=== PATIENT | female | born 1945 | race Caucasian/White ===

== ENCOUNTER 2017-12-16 20:29 | Emergency (ER) | payer OTHER, MEDICARE ==
[~2017-12-16] VITALS: Ht 162.6 cm; Wt 111.6 kg
[~2017-12-16 20:29] MED LIST: ALBU90OI61 INH; ALBUTEROL MDI; ASPI81CH PO; AZIT500; CLOT10; CODACE30; ERGO50000 PO; ERYT.5TO OS; FURO20 PO; GLIP5 PO; HYDGUAL120; INSLI100I; INSULANI; INSULANI SC; KETEK; KETO10; KETO10 PO; LISI5 PO; MAGGLU250 PO; MELA3 PO; METF500 PO; MORP15ER PO; MUPI2TO TOP; NAPR500; OXYACE5T; OXYACE5T PO; OXYC5 PO; POTA8 PO; PRED20; PROM25 PO; PSYL5.85P; RANI150; RANI150 PO; RXCODACET PO; Robaxin500 MG PO; SIMV10 PO; TORADOL; TRAZ100; TRAZ50; TRAZADONE; ZOLP5 PO; [UNRECOGNIZED DRUG - REMARK]
[2017-12-16 20:56] LABS: BASOPHILS ABSOLUTE AUTO 0.11 K/mm3 (0.00-0.23); BASOPHILS PERCENT AUTO 1 % (0-2); EOSINOPHILS ABSOLUTE AUTO 0.08 K/mm3 (0.00-0.68); EOSINOPHILS PERCENT AUTO 0 % (0-6); Hematocrit 45.5 % (33.0-51.0); Hemoglobin 15.6 g/dL (11.5-16.0); IMMATURE GRAN ABSOLUTE AUTO 0.21 K/mm3 (0.00-0.10); IMMATURE GRAN PERCENT AUTO 1 % (0-1); LYMPHOCYTES ABSOLUTE AUTO 3.75 K/mm3 (0.84-5.20); LYMPHOCYTES PERCENT AUTO 17 % (21-46); MONOCYTES ABSOLUTE AUTO 1.56 K/mm3 (0.16-1.47); MONOCYTES PERCENT AUTO 7 % (4-13); Mean Corpuscular HGB 26.3 pg (26.0-34.0); Mean Corpuscular HGB Conc 34.3 g/dL (31.5-36.5); Mean Corpuscular Volume 77 fL (80-100); Mean Platelet Volume 11.9 fL (9.1-12.4); NEUTROPHILS ABSOLUTE AUTO 16.37 K/mm3 (1.96-9.15); NEUTROPHILS PERCENT AUTO 74 % (41-73); Platelet Count 400 K/mm3 (150-400); RDW Coefficient Variation 12.6 % (11.7-14.2); RDW Standard Deviation 34.9 fL (35.1-46.3); Red Blood Cell Count 5.93 M/mm3 (3.80-5.20); White Blood Cell Count 22.08 K/mm3 (4.00-11.30)
[2017-12-16 21:00] LABS: Chloride (POC) 91 mmol/L (98-108); Creatinine (POC) 0.8 mg/dL (0.6-1.0); Glucose (ISTAT POC) 182 mg/dL (70-99); Hemoglobin (POC) 15.3 g/dL (12.0-16.0); Potassium (POC) 2.4 mmol/L (3.5-5.5); Sodium (POC) 133 mmol/L (135-148); Total CO2 (POC) 18 mmol/L (21-32)
[2017-12-16 21:06] LABS: Alanine Aminotransfer (ALT/SGP 40 U/L (12-78); Albumin, Blood 3.7 g/dL (3.4-5.0); Albumin/Globulin Ratio 0.9 (0.8-1.8); Alk Phos 112 U/L (50-136); Anion Gap 20 mmol/L (6-16); Aspartate Aminotrans (AST/SGOT 33 U/L (12-37); Bilirubin, Total 0.7 mg/dL (0.1-1.0); Blood Urea Nitrogen 8 mg/dL (8-24); CO2, Blood 19 mmol/L (21-32); Calcium, Blood 9.3 mg/dL (8.5-10.1); Chloride, Blood 93 mmol/L (98-108); Ethanol (Alcohol), Blood, Med <3 mg/dL; Globulin, Blood 4.1 g/dL (2.2-4.0); Glomerular Filtration Rate >60 (60-); Glucose, Blood 176 mg/dL (70-99); Potassium, Blood 2.5 mmol/L (3.5-5.5); Sodium, Blood 132 mmol/L (136-145); Total Protein, Blood 7.8 g/dL (6.4-8.2)
[2017-12-16 21:15] LABS: International Normalized Ratio 1.12; Prothrombin Time Results 11.7 Sec (9.7-11.5)
== END 2017-12-17 21:45 | disposition short-term general hospital (02) ==
LOC: ER 20:29
PROVIDERS: Emergency Medicine
DX: S00.03XA Contusion of scalp, initial encounter (principal); S20.219A Contusion of unspecified front wall of thorax, initial encounter; R41.82 Altered mental status, unspecified; R29.818 Other symptoms and signs involving the nervous system; E11.9 Type 2 diabetes mellitus without complications; I10 Essential (primary) hypertension; E78.00 Pure hypercholesterolemia, unspecified; Z91.048 Other nonmedicinal substance allergy status; Z79.899 Other long term (current) drug therapy; Z79.82 Long term (current) use of aspirin; Z79.4 Long term (current) use of insulin; Z87.891 Personal history of nicotine dependence; V49.9XXA Car occupant (driver) (passenger) injured in unspecified traffic accident, initial encounter
CPT/HCPCS: 31500; 51702; 70450; 71045; 71260; 72125; 74177; 80047; 80053; 83690; 85014; 85025; 85610; 85730; 86850; 86900; 86901; 93005; 93010; 94002; 99291; 99292; G0480; J0330; J7040; J7120; Q9967

== ENCOUNTER 2018-01-14 01:21 | Emergency (ER) | payer MEDICARE ==
[~2018-01-14] VITALS: Ht 160 cm; Wt 90.7 kg
[2018-01-14] MEDS ORDERED: LISI20 PO (01:48)
[2018-01-14] MEDS ORDERED: LIDO700A20 TOP (01:48)
[2018-01-14] MEDS ORDERED: LEVSOD75 PO (01:49)
[2018-01-14] MEDS ORDERED: QUET100 PO (01:49)
[2018-01-14] MEDS ORDERED: MELA3 PO (01:49)
[2018-01-14] MEDS ORDERED: Bactrim 400-801 EACH PO (01:50)
[2018-01-14] MEDS ORDERED: TRAZ50 PO (01:50)
[2018-01-14] MEDS ORDERED: MORP15ER PO (01:51)
[2018-01-14] MEDS ORDERED: METO50ER PO (01:51)
[2018-01-14] MEDS ORDERED: METF500C PO (01:51)
[2018-01-14] MEDS ORDERED: GABA100 PO (01:52)
[2018-01-14] MEDS ORDERED: Senna8.6 MG PO (01:52)
[2018-01-14] MEDS ORDERED: QUET25 PO (01:53)
[2018-01-14] MEDS ORDERED: MAGOX 400400 MG PO (01:53)
[2018-01-14] MEDS ORDERED: ACET325 PO (01:54)
[2018-01-14] MEDS ORDERED: OXYC5 PO (01:55)
[2018-01-14] MEDS ORDERED: TRAM50 PO (01:55)
[2018-01-14] MEDS ORDERED: ONDA8 PO (01:56)
[2018-01-14] MEDS ORDERED: Humalog100 UNIT/1 SC ×2 (01:57→01:59)
[2018-01-14] MEDS ORDERED: INSULANPEN SC ×2 (01:58)
== END 2018-01-14 03:13 | disposition home or self-care (01) ==
LOC: ER 01:21
DX: G89.29 Other chronic pain (principal); M25.552 Pain in left hip; E11.9 Type 2 diabetes mellitus without complications; I10 Essential (primary) hypertension; E78.00 Pure hypercholesterolemia, unspecified; Z87.891 Personal history of nicotine dependence; Z79.4 Long term (current) use of insulin; Z79.899 Other long term (current) drug therapy; Z91.048 Other nonmedicinal substance allergy status; Z91.040 Latex allergy status
CPT/HCPCS: 96372; 99284; J3010

== ENCOUNTER 2018-02-10 15:08 | Emergency (ER) | payer MEDICARE ==
[~2018-02-10] VITALS: Ht 162.6 cm; Wt 96.6 kg
[~2018-02-10 15:08] MED LIST changes: +ACET325 PO; +Bactrim 400-801 EACH PO; +GABA100 PO; +Humalog100 UNIT/1 SC; +INSULANPEN SC; +LEVSOD75 PO; +LIDO700A20 TOP; +LISI20 PO; +MAGOX 400400 MG PO; +METF500C PO; +METO50 PO; +ONDA8 PO; +QUET100 PO; +QUET25 PO; +Senna8.6 MG PO; +TRAM50 PO; +TRAZ50 PO
[2018-02-10] MEDS ORDERED: GABA100 PO (15:37)
[2018-02-10] MEDS ORDERED: QUET25 PO (15:41)
[2018-02-10 15:50] LABS: Source, Urine Clean Catch
[2018-02-10 15:54] LABS: Appearance, Urine Clear (Clear); Bilirubin, Urine Neg (Neg); Blood, Urine Neg (Neg); Color, Urine Yellow (P-Yellow); Glucose Qualitative, Urine Neg (Neg); Ketones, Urine Neg (Neg); Leukocyte Esterase, Urine Neg (Neg); Nitrite, Urine Neg (Neg); Protein, Urine Neg (Neg); Urobilinogen, Urine NORM (Normal)
[2018-02-10 16:05] LABS: BASOPHILS ABSOLUTE AUTO 0.05 K/mm3 (0.00-0.23); BASOPHILS PERCENT AUTO 1 % (0-2); EOSINOPHILS ABSOLUTE AUTO 0.24 K/mm3 (0.00-0.68); EOSINOPHILS PERCENT AUTO 3 % (0-6); Hematocrit 34.2 % (33.0-51.0); Hemoglobin 10.8 g/dL (11.5-16.0); IMMATURE GRAN ABSOLUTE AUTO 0.03 K/mm3 (0.00-0.10); IMMATURE GRAN PERCENT AUTO 0 % (0-1); LYMPHOCYTES ABSOLUTE AUTO 2.23 K/mm3 (0.84-5.20); LYMPHOCYTES PERCENT AUTO 27 % (21-46); MONOCYTES ABSOLUTE AUTO 0.57 K/mm3 (0.16-1.47); MONOCYTES PERCENT AUTO 7 % (4-13); Mean Corpuscular HGB Conc 31.6 g/dL (31.5-36.5); Mean Corpuscular Volume 82 fL (80-100); Mean Platelet Volume 11.8 fL (9.1-12.4); NEUTROPHILS ABSOLUTE AUTO 5.22 K/mm3 (1.96-9.15); NEUTROPHILS PERCENT AUTO 63 % (41-73); Platelet Count 194 K/mm3 (150-400); RDW Coefficient Variation 14.2 % (11.7-14.2); Red Blood Cell Count 4.16 M/mm3 (3.80-5.20); White Blood Cell Count 8.34 K/mm3 (4.00-11.30)
[2018-02-10 16:26] LABS: Alanine Aminotransfer (ALT/SGP 25 U/L (12-78); Albumin, Blood 3.5 g/dL (3.4-5.0); Alk Phos 72 U/L (50-136); Anion Gap 8 mmol/L (6-16); Aspartate Aminotrans (AST/SGOT 17 U/L (12-37); Bilirubin, Total 0.2 mg/dL (0.1-1.0); Blood Urea Nitrogen 30 mg/dL (8-24); Bun/Creatinine Ratio 38.5 (12.0-20.0); CO2, Blood 26 mmol/L (21-32); Calcium, Blood 9.4 mg/dL (8.5-10.1); Chloride, Blood 106 mmol/L (98-108); Creatinine, Blood 0.78 mg/dL (0.40-1.00); Globulin, Blood 3.6 g/dL (2.2-4.0); Glomerular Filtration Rate >60 (60-); Glucose, Blood 142 mg/dL (70-99); Potassium, Blood 5.7 mmol/L (3.5-5.5); Sodium, Blood 140 mmol/L (136-145); Total Protein, Blood 7.1 g/dL (6.4-8.2)
[2018-02-10] MEDS ORDERED: Robaxin500 MG PO (18:41)
== END 2018-02-10 20:29 | disposition home or self-care (01) ==
LOC: ER 15:08
PROVIDERS: Physician Assistant
DX: S32.009A Unspecified fracture of unspecified lumbar vertebra, initial encounter for closed fracture (principal); S70.02XA Contusion of left hip, initial encounter; E11.9 Type 2 diabetes mellitus without complications; I10 Essential (primary) hypertension; E78.00 Pure hypercholesterolemia, unspecified; Z91.040 Latex allergy status; Z91.048 Other nonmedicinal substance allergy status; Z79.899 Other long term (current) drug therapy; Z79.4 Long term (current) use of insulin; Z87.891 Personal history of nicotine dependence; W18.30XA Fall on same level, unspecified, initial encounter
CPT/HCPCS: 72100; 73502; 80053; 81003; 85025; 93005; 93010; 96360; 99283; J7120